=== PATIENT | female | born 1995 | race Caucasian/White ===

== ENCOUNTER → 2017-08-09 12:05 | Outpatient (CLI) | payer OTHER, SELFPAY ==
--- NOTE | 2017-08-09 17:43 | DIET.PN ---
Met for third outpatient f/u for weight control. Michael reports things did not as well this time: is feeling very depressed r/t personal issues w/best friend and gym partner moving unexpectedly. States she has dealt w/depression on/off since age 11. Resists medications. Depression means she has had no appetite (never has hunger pangs anyway), no motivation to prep/plan meals so grabs easiest foods when gets fatigued or feels bg getting low. Kept up gym workout until last week. Is very disappointed that wt up again, but states it tends to fluctuate significantly DX: Obesity, depression WT: 316# Weight up almost to beginning wt again. May partly be r/t fluid as food choices have not been as good w/more convenience and processed/salty foods which may increase fluid retention. INTERVENTION: Provided reinforcement for dealing w/depression. Does have an appointment w/therapist next week. Discussed nurturing activities and having easy, no prep foods on hand. Strongly encouraged to continue keeping up physical activity PLAN: f/u in approx 4 weeks.
== END ==
PROVIDERS: Visit Provider Psychiatry & Neurology Psychiatry
DX: E66.9 Obesity, unspecified (principal); F32.9 Major depressive disorder, single episode, unspecified
CPT/HCPCS: 97803

== ENCOUNTER → 2017-09-09 10:55 | Outpatient (CLI) | payer OTHER, SELFPAY ==
--- NOTE | 2017-09-09 11:31 | DIET.PN ---
F/U consultation Michael continues to be very depressed. Is seeing MH counselor weekly. REally does not want to take meds for depression as side effects were intolerable. States she knows this will pass; has dealt w/depression all her life. Still has not heard from friend and has lost her support; not interested in making new friends; prefers to be alone. Still going to gym but only couple times per week vs 5X as previously doing. Still tracking of [employer] and states according the that she is still in a calorie deficit. WEIGHT: Michael weighed but did not want me to see. States it's the highest it's been ASSESSMENT: Struggling to make good food choices; often chooses not to eat at all. Has no desire to prep food. Depressed and very discouraged. INTERVENTION: Acknowledged feelings- disappointment. Provided information on convenience foods that are healthier choices for some very easy meals, combined with fresh foods to add bulk and dilute the sodium. Encouraged to schedule events and do them (going to gym, meals, etc) to give guidance without having to make a lot of decisions. Will f/u in 6 weeks
== END ==
PROVIDERS: Visit Provider Psychiatry & Neurology Psychiatry
DX: F32.9 Major depressive disorder, single episode, unspecified (principal)
CPT/HCPCS: 97803

== ENCOUNTER → 2017-10-25 14:42 | Outpatient (CLI) | payer OTHER, SELFPAY ==
[2017-10-25 16:24] LABS: Monotest Negative (Negative)
== END ==
PROVIDERS: Visit Provider Physician Assistant
DX: J02.9 Acute pharyngitis, unspecified (principal)
CPT/HCPCS: 36415; 86318

== ENCOUNTER → 2017-11-15 18:40 | Outpatient (CLI) | payer OTHER, SELFPAY ==
[2017-11-15 20:41] LABS: Urine N gonorrhoeae NOT DETECTED
[2017-11-15 20:43] LABS: Urine Chlamydia NOT DETECTED
== END ==
PROVIDERS: Visit Provider Physician Assistant
DX: Z11.3 Encounter for screening for infections with a predominantly sexual mode of transmission (principal); J35.1 Hypertrophy of tonsils
CPT/HCPCS: 87070; 87077; 87491; 87591

== ENCOUNTER → 2017-11-16 12:56 | Outpatient (CLI) | payer OTHER, SELFPAY ==
[2017-11-16 21:05] LABS: HIV 1 and 2 Antibody NEGATIVE (NEGATIVE); Hep C Virus Ab w/Reflex Quant NEGATIVE s/c (NEGATIVE)
[2017-11-18 15:33] LABS: Hepatitis B Core Antibody Nonreactive (Nonreactive)
[2017-11-22 15:44] LABS: Rapid Plasma Reagin NON REACTIVE
== END ==
PROVIDERS: PCP Nurse Practitioner Family; Visit Provider Physician Assistant
DX: Z71.1 Person with feared health complaint in whom no diagnosis is made (principal)
CPT/HCPCS: 36415; 86592; 86696; 86703; 86704; 86803

== ENCOUNTER → 2018-02-15 12:21 | Outpatient (CLI) | payer OTHER, SELFPAY | PROVIDERS: PCP Nurse Practitioner Family; Visit Provider Physician Assistant | DX: J02.9 Acute pharyngitis, unspecified (principal); Z20.2 Contact with and (suspected) exposure to infections with a predominantly sexual mode of transmission | CPT/HCPCS: 87070; 87252 ==

== ENCOUNTER → 2019-01-12 09:16 | Outpatient (CLI) | payer OTHER, SELFPAY ==
[2019-01-12 12:16] LABS: Urine N gonorrhoeae NOT DETECTED
[2019-01-12 12:20] LABS: Urine Chlamydia NOT DETECTED
== END ==
PROVIDERS: PCP Nurse Practitioner Family; Visit Provider Physician Assistant
DX: Z11.3 Encounter for screening for infections with a predominantly sexual mode of transmission (principal); N89.8 Other specified noninflammatory disorders of vagina
CPT/HCPCS: 87210; 87252; 87255; 87491; 87591

== ENCOUNTER → 2024-05-16 13:30 | Outpatient (CLI) | payer OTHER, SELFPAY ==
[2024-05-16 14:15] LABS: Influenza A - CEPHEID Flu A NEGATIVE (NEGATIVE); Influenza B - CEPHEID Flu B POSITIVE (NEGATIVE); Respiratory Syncytial Virus Negative (Negative)
[2024-05-16 14:35] LABS: COVID-19 CEPHEID 4-PLEX PCR Negative (Negative)
== END ==
PROVIDERS: PCP Nurse Practitioner Family; Visit Provider Physician Assistant Surgical
DX: R68.89 Other general symptoms and signs (principal)
CPT/HCPCS: 0241U